=== PATIENT | female | born 1930 | race Caucasian/White ===

== ENCOUNTER → 2016-12-12 | Outpatient (CLI) | payer MEDICARE, BC ==
[~2016-12-12] MED LIST: ASPIRIN 81M81 MG/TA2 PO; BLOOD PRESSURE MED; CITRACAL + D CA1 TAB; FISH OIL 1000MG1 CAP PO; FLAREX 5 ML5 M1 OP; FOSAMAX 70MG TA70 MG PO; LEVOTHYROXIN0.025 MG PO; LOTENSIN20 MG PO; NORVASC 5MG5 MG/TAB PO; TIROSINT100 MC1 PO
== END ==
LOC: MC.RAD 13:28
DX: Z12.31 Encounter for screening mammogram for malignant neoplasm of breast (principal)

== ENCOUNTER → 2017-12-28 | Outpatient (CLI) | payer MEDICARE, BC | LOC: MC.RAD 09:42 | DX: Z12.31 Encounter for screening mammogram for malignant neoplasm of breast (principal) ==

== ENCOUNTER → 2018-09-05 | Outpatient (CLI) | payer MEDICARE, BC | LOC: COL.VAS 11:53 | DX: I70.213 Atherosclerosis of native arteries of extremities with intermittent claudication, bilateral legs (principal) ==